=== PATIENT | female | born 1950 | race Caucasian/White ===

== ENCOUNTER 2021-08-07 17:12 | Outpatient (REF) | payer MEDICARE, MEDICAID, SELFPAY ==
--- NOTE | ~2021-08-07 | XR_ITS ---
EXAMINATION: XR HAND, LEFT CLINICAL INFORMATION: Pain. COMPARISON: Left wrist radiographs dated 07/08/2016. TECHNIQUE: PA, lateral, and oblique views of the left hand. FINDINGS: Comminuted and mildly displaced fracture through the base of the 5th proximal phalanx with medial and lateral oblique components which contacts the metacarpophalangeal articular surface. No additional fracture. No dislocation. Chronic deformity of the distal radius, consistent with a remote, healed fracture. 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 No abnormal soft tissue calcification. Lateral soft tissue swelling. XR/XR hand LT min 3V IMPRESSION: Comminuted and mildly displaced fracture through the base of the 5th proximal phalanx with fracture lines contacting the articular surface. Overlying soft tissue swelling.
== END 2021-08-07 17:13 | disposition home or self-care (01) ==
LOC: HO.HMGCX 17:12
PROVIDERS: PCP Internal Medicine; Visit Provider Internal Medicine
DX: Z13.89 Encounter for screening for other disorder (principal)
CPT/HCPCS: 73130